=== PATIENT | female | born 1945 | race Caucasian/White ===

== ENCOUNTER 2022-06-21 14:30 | Outpatient (CLI) | payer MEDICARE, SELFPAY ==
--- NOTE | 2022-06-21 15:00 | CRLHL7_ITS ---
For Patients: As a result of the Century Cures Act, medical imaging exams and procedure reports are released immediately into your electronic medical record. You may view this report before your referring provider. If you have questions, please contact your health care provider. DXA BONE MINERAL DENSITY STUDY 06/21/2022 Current height (in): 65.5. Weight (lb): 112.0. Menopause age: 52. Ethnicity: White. 1. Have you had a previous hip or vertebral fracture? No. 2. Have you had any fractures during your adult life which did not result from significant trauma (e.g., auto accident)? No. 3. Did either of your parents have a hip fracture? No. 4. Do you smoke? No. 5. Have you ever taken Glucocorticoids? No. 6. Do you have rheumatoid arthritis? No. 7. Do you have secondary osteoporosis? No. 8. Do you drink 3 or more alcoholic drinks per day? No. 9. Are you being treated for osteoporosis? No. 10. Have you ever taken any of the following medications: Actonel, Evista, Fosamax, Miacalcin, Reclast, Boniva, Forteo, HRT (i.e. estrogen/hormone therapy), Protelos, Prolia, Vitamin D, Calcium, other ??? please specify. ANSWER: Yes, vitamin D, calcium. 11. Do you have any of the following medical conditions: Anorexia or bulimia, asthma or emphysema, end stage renal disease, hyperparathyroidism, any seizure disorders, cancer, inflammatory bowel diseases, hysterectomy, other ??? please specify. ANSWER: Yes, hysterectomy. 12. What was your maximum height (inches)? 65. 13. Do you perform weight bearing exercise regularly? Yes. 14. Do you regularly consume dairy products? No. 15. Do you drink caffeinated beverages? No. 16. At what age did your period start? 17. 17. Are you premenopausal? No. 18. How many full term pregnancies have you had? 0. 19. Have you ever missed your period for more than 6 months in a row (not including or menopause)? No. TECHNIQUE: Bone mineral density study was performed using the [employer]. FINDINGS: The results of the study expressed as bone mineral density (BMD) are as follows: Lumbar spine L1, L2, and L4: BMD: 0.944 g/cm2. T-score: -0.8. Z-score: 1.6. Neck Left: BMD: 0.606 g/cm2. T-score: -2.2. Z-score: -0.1. Right: BMD: 0.616 g/cm2. T-score: -2.1. Z-score: 0.0. Total Left: BMD: 0.820 g/cm2. T-score: -1.0. Z-score: 0.8. Right: BMD: 0.816 g/cm2. T-score: -1.0. Z-score: 0.8. IMPRESSION: Osteopenia. *Comparison exams done prior to 11/2019 were performed on different unit, [facility]. COMPARISON: Compared with scan of 01/13/2020, the bone mineral density has decreased by 1.3 percent at the spine and decreased by 3.1 percent at the hips. FRAX 10-year Fracture Risk Major Osteoporotic Fracture: 12 percent Hip Fracture: 3.4 percent Reported Risk Factors: [place] () Neck BMD=0.606, BMI=18.4 Juan A Escobedo M.D. Diagnostic Radiologist [email or web address] OSIEL/fadia / be/Dictated by: Juan A Escobedo MD @ 06/21/2022 3:31:00 PM (Electronically Signed)
== END 2022-06-21 14:31 | disposition home or self-care (01) ==
PROVIDERS: PCP Family Medicine; Visit Provider Family Medicine
DX: M85.80 Other specified disorders of bone density and structure, unspecified site (principal); M85.89 Other specified disorders of bone density and structure, multiple sites; M81.0 Age-related osteoporosis without current pathological fracture
CPT/HCPCS: 77080

== ENCOUNTER 2023-06-14 14:44 | Outpatient (CLI) | payer MEDICARE, SELFPAY | END 2023-06-14 14:45 | disposition home or self-care (01) | PROVIDERS: PCP Family Medicine; Visit Provider Family Medicine | DX: I10 Essential (primary) hypertension (principal); E03.9 Hypothyroidism, unspecified | CPT/HCPCS: 80048; 84443 ==

== ENCOUNTER 2024-01-01 11:21 | Outpatient (CLI) | payer MEDICARE, SELFPAY | END 2024-01-01 11:22 | disposition home or self-care (01) | PROVIDERS: PCP Family Medicine; Visit Provider Family Medicine | DX: I10 Essential (primary) hypertension (principal) | CPT/HCPCS: 80048; 80061 ==

== ENCOUNTER 2024-01-29 09:10 | Outpatient (CLI) | payer MEDICARE, SELFPAY ==
--- NOTE | 2024-01-29 09:45 | CRLHL7_ITS ---
For Patients: As a result of the Century Cures Act, medical imaging exams and procedure reports are released immediately into your electronic medical record. You may view this report before your referring provider. If you have questions, please contact your health care provider. BILATERAL SCREENING MAMMOGRAM WITH COMPUTER-AIDED DETECTION AND TOMOSYNTHESIS TECHNIQUE: CC and MLO views were obtained. These mammographic images have been obtained using full-field digital technique. These mammographic images were interpreted with the benefit of computer-aided detection. Breast Tomosynthesis was used in this interpretation. COMPARISON FILM: 08/24/21, 08/18/20, 08/10/19. FINDINGS: The breasts are heterogeneously dense, which may obscure small masses IMPRESSION: There is no radiographic evidence for malignancy. ASSESSMENT: BI-RADS Category 1: Negative RECOMMENDATION: Routine screening mammogram in 1 year. A lay language report of this examination will be provided to the patient. Juan A Escobedo M.D. Diagnostic Radiologist [email or web address] NURYS/Dictated by: Juan A Escobedo MD @ 01/30/2024 9:50:00 AM (Electronically Signed)
== END 2024-01-29 09:11 | disposition home or self-care (01) ==
LOC: MAMMO 09:12
PROVIDERS: PCP Family Medicine; Visit Provider Family Medicine
DX: Z12.31 Encounter for screening mammogram for malignant neoplasm of breast (principal); R92.2 Inconclusive mammogram
CPT/HCPCS: 77063; 77067

== ENCOUNTER 2024-11-24 17:10 | Emergency (ER) | payer MEDICARE, SELFPAY ==
--- OUTSIDE RECORDS SUMMARY | 2024-11-24 17:13 | XMS_ITS | Clinical Summary ---
Author Organization [facility] Address [address] [place] [id number] Care Team Providers Care Rand Maker Name Role Phone Juan A Gore MD Primary Care Provider + Allergies No known active allergies Medications No known medications Social History Tobacco Use Types Packs/Day Years Used Date Smoking Tobacco: Never Smokeless Tobacco: Never Alcohol Use Standard Drinks/Week Comments Not Asked 0 (1 standard drink = 0.6 oz pur e alcohol) Comments Unknown Sex and Gender Information Value Date Recorded Sex Assigned at Not on file Legal Sex Female 7:04 AM FINAL [employer] Gender Identity Not on file Sexual Orientation Not on file Obstetrics History Last Filed Vital Signs Vital Sign Reading Time Taken Comments Blood Pressure 137/74 03/09/2013 2:26 PM CDT Pulse 56 03/09/2013 2:26 PM CDT Temperature - - Respiratory Rate - - Oxygen Saturation 97% 03/09/2013 2:26 PM CDT Inhaled Oxygen Concentration - - Weight 54.5 kg (120 lb 4 oz) 03/09/2013 2:26 PM CDT Height - - Body Mass Index - - Plan of Treatment Health Maintenance Due Date Last Done Comments Tdap 1958 Depression screening for age 12+ 1959 BMI (ht and wt on same day) for age 18+ 1965 Hepatitis C screening for ag e 18-79 1965 Tetanus booster 1967 Pneumococcal series for age 50+ (1 of 1 - PCV) 1997 Zoster (shingles) series for age 50+ (1 of 2) 1997 DEXA/DXA scan for age 65+ 01/15/2012 RSV vaccine for adults or (1 - 1-dose 75+ series) 2022 COVID-19 vaccine series (2023- season) 2024 Influenza Vaccine (Season Ended) 2025 Hepatitis B series for 19+ Aged Out N o longer eligible based on patient's age to complete this topic Insurance BLUE CROSS MEDICARE ADVANTAGE MR Care Teams Rand Maker Relationship Specialty Start Date End Date Juan A Gore MD [address] [place] [address] PCP - General Family Practice 03/26/22
[2024-11-24 17:19] VITALS: BP 194/78; PULSE 66; RESP 18; TEMP 36.9; O2SAT 98; BMI 17.3
--- NOTE | 2024-11-24 17:22 | ED_ITS ---
HPI - Animal Bite General Time Seen by Provider: 17:22 Date Seen: 11/24/24 Chief Complaint: Animal Bite Stated Complaint: reffered here for possible rabies Time Seen by Provider: 11/24/24 17:12 Source: patient and RN notes reviewed Mode of arrival: ambulatory Limitations: no limitations History of Present Illness HPI narrative: This 79-year-old female is referred by Urgent Care for a feral cat bite. She was bit in the right palm area earlier. This is a feral cat that she has been feeding for about 5 years. The cat is friendly with her and does allow her to touch it. She was petting it, feels she had an area that the cat did not like in the cat reached around and bit her in the hand. She did clean the wound, put ointment on it and bandaged. She was instructed by urgent care to go to the ER for rabies immunoglobulin. This cat is not vaccinated. Patient is up-to-date on her tetanus, last 1 in June 2018. MD complaint: animal bite Related Data Home Medications ?Medication ?Instructions ?Recorded ?Confirmed calcium 333 mg-vit D3 200 1 tab PO QDAY 01/26/2211/24 unit-magnesium 133 mg-zinc 5 mg tablet lactobacillus combination no.9 4 4,000 mmu cells PO QD AY 01/26/22 11/24/24 billion cell capsule (Adult 50 Plus Probiotic) kkluuszb-ydv-dupad ac 400 1 tab PO QDAY 01/26/2211/24 mcg-calcium carb 500 mg-vit K1 20 mcg tablet (Women's 50 Plus Multivitamin) Previous Rx's ?Medication ?Instructions ?Recorded lisinopril 20 mg tablet 20 mg PO DAILY #90 tabs 12/22 024 amoxicillin 500 mg-potassium 1 tab PO BID #10 tabs 09/15 clavulanate 125 mg tablet (Augmentin) Allergies Allergy/AdvReac Type Severity Reaction Status Date / Time aspirin Allergy Severe Verified 11/24/24 16:29 gluten Allergy Severe Gastrointestinal Verified 11/24/24 16:29 Upset lactose Allergy Severe Gastrointestinal Verified 11/24/24 16:29 Upset thimerosal Allergy Unknown Unknown Verified 11/24/24 16:29 chocolate AdvReac Severe Headache Verified 11/24/24 16:29 Review of Systems Narrative: As per HPI. PFSH PFSH Medical History Primary hypertension ?I10 - Essential (primary) hypertension (ICD-10) History of pericarditis ?Z86.79 - Personal history of other diseases of the circulatory system (ICD- 10) Campylobacter enteritis ?A04.5 - Campylobacter enteritis (ICD-10) Irritable bowel syndrome ?K58.9 - Irritable bowel syndrome without diarrhea (ICD-10) Symptomatic premature ventricular contractions ?I49.3 - Ventricular premature depolarization (ICD-10) Osteopenia ?M85.80 - Other specified disorders of bone density and structure, unspecified site (ICD-10) History of diverticulitis ?Z87.19 - Personal history of other diseases of the digestive system (ICD-10) Depression (01/08/13) ?F32.A - Depression, unspecified (ICD-10) Surgical History History of left breast biopsy ?Z98.890 - Other specified postprocedural states (ICD-10) Hx of blepharoplasty ?Z98.890 - Other specified postprocedural states (ICD-10) S/P CHANDLER-BSO ?Z90.710 - Acquired absence of both cervix and uterus (ICD-10) ?Z90.722 - Acquired absence of ovaries, bilateral (ICD-10) ?Z90.79 - Acquired absence of other genital organ(s) (ICD-10) History of tonsillectomy ?Z90.89 - Acquired absence of other organs (ICD-10) Family History Father High blood pressure Social History Narrative: , retired, nonsmoker What is your current living situation?: I presently have a place to live Problems where you live: no known problems In the past 12 months, utilities in danger of being shut off: no In past 12 months, lack of transportation kept you from medical appts, meetings, work, or getting things needed for daily living: no In the past 12 mos, have been you worried that your food would run out before you had money to buy more?: never true In the past 12 mos, the food you bought just didn't last and you didn't have money to buy more?: never true Smoking Status: Never smoker How often does anyone, including family, friends and others, physically hurt you : never How often does anyone, including family, friends and others, insult or talk down to you: never How often does anyone, including family, friends and others, threaten you with harm: never How often does anyone, including family, friends and others, scream or curse at you: never Exam Const: Vital Signs, click to edit/add: Vital Signs - 24 hr 11/24/24 17:19 Temperature 98.4 F Pulse Rate [Pulse Oximeter] 66 Respiratory Rate 18 Blood Pressure [Ri ght Upper Arm] 194/78 H Pulse Oximetry 98 Oxygen Delivery Me thod Room Air This very pleasant 79-year-old female is ambulatory in the ED of her own accord. She is alert, interactive, no apparent distress. On her right thenar eminence she has bandage over it, this is opened up, she has some punctate lesions with a little bit of bleeding, no erythema, no swelling. These lesions just had a l ittle oozing, there is a little drainage of blood on the bandage. Obviously no acute infection at this time, wound just happened within the last couple hours. Documenting provider has reviewed patient's vital signs: yes Course Course ED Course: Discussed with her ongoing watching of this animal. If the animal is appearing ill or becoming sick, should be live trapped, you thin eyes and tested. She can always contact [facility] or local resources for further direction on this. We discussed wound prophylaxis for infection. We also reviewed rabies immunoglobulin and rabies vaccine. She has opted to treat with rabies immunoglobulin and rabies vaccine. I will have nursing staff give me about 2 mL of the rabies immune globulin to inject around the thenar eminence. Reevaluation(s) Time of Reevaluation #1: 17:55 Reevaluation #1: Injected 2 mL of rabies immune globulin around the wound in the thenar eminence area. She tolerated this well. Nursing staff will give the rest of the immunoglobulin and the rabies vaccine. Vital Signs Vital signs: Initial Vital Signs Temperature 98.4 F 11/24/24 17:19 Temperature Source Temporal Artery Scan 11/24/24 17:19 Pulse Rate 66 11/24/24 17:19 Respiratory Rate 18 11/24/24 17:19 Blood Pressure 194/78 H 11/24/24 17:19 Blood Pressure Mean 116 H 11/24/24 17:19 Blood Pressure Position Sitting 11/24/24 17:19 Pulse Oximetry 98 11/24/24 17:19 Oxygen Delivery Method Room Air 11/24/24 17:19 Vital Signs Temperature 98.4 F 11/24/24 17:19 Pulse Rate 66 11/24/24 17:19 Respiratory Rate 18 11/24/24 17:19 Blood Pressure 194/78 H 11/24/24 17:19 Pulse Oximetry 98 11/24/24 17:19 Oxygen Delivery Method Room Air 11/24/24 17:19 Temperature 98.4 F 11/24/24 17:19 Pulse Rate 66 11/24/24 17:19 Respiratory Rate 18 11/24/24 17:19 Blood Pressure 194/78 H 11/24/24 17:19 Pulse Oximetry 98 11/24/24 17:19 Oxygen Delivery Method Room Air 11/24/24 17:19 Discharge Plan Discharge Clinical Impression: Cat bite Qualifiers: Encounter type: initial encounter Qualified Code(s): W55.01XA - Bitten by cat, initial encounter Patient Disposition: Home, Self-Care Condition: Stable Instructions: Animal Bite (ED) Additional Instructions: Can use Tylenol if you have any low-grade fever or body aches from the immunizations or immunoglobulin. Follow bottle dosing for instructions of Tylenol. You will need to return on day 3, 7 and 14 for repeat vaccination for rabies. This is a multiple dose series to become immunized against rabies. I have also provided a prescription for Augmentin to take for wound prophylaxis to prevent infection. Try to start this tonight but certainly need to start it tomorrow morning at the latest. If you do see increased redness swelling, purulent discharge, develops fever with these symptoms, need to be re-evaluated for possible wound infection not responding to the Augmentin. Activity Level: Activity as Tolerated Prescriptions: New amoxicillin-pot clavulanate [Augmentin] 500-125 mg tablet 1 tab PO BID Qty: 10 0RF No Action lisinopril 20 mg tablet 20 mg PO DAILY Qty: 90 3RF calcium carb-D3-mag kil97-lgoi [phone] nw-pnul-iq-mg tablet 1 tab PO QDAY Rx Instructions: administer with a meal Adult 50 Plus Probiotic 4 billion cell capsule 4,000 mmu cells PO QDAY Rx Instructions: administer with a meal Women's 50 Plus Multivitamin 400 mcg-500 mg calcium-20 mcg tablet 1 tab PO QDAY Follow Up/Referrals: Juan A Gore MD [Primary Care Provider, Family Practice] Stand Alone Forms: RegisterPatientth Info Instructions
[2024-11-24] MEDS: RABIES VACCINE (RABAVERT) 2.5 UNIT IM (18:03)
[2024-11-24] MEDS: RABIES IMMUNE GLOBULIN 150 UNIT/ML INJ 900 UNIT INFILTRATI (18:05)
--- NOTE | 2024-11-25 09:53 | ED.NURSE ---
Spoke to patient's . Prescription was inadvertly sent to wrong pharmacy. I then called this prescription to jose en[facility] in [place] pharmacy.
== END 2024-11-24 18:42 | disposition home or self-care (01) ==
LOC: ED 17:34
PROVIDERS: Emergency Provider Family Medicine; PCP Family Medicine
DX: S61.451A Open bite of right hand, initial encounter (principal); W55.01XA Bitten by cat, initial encounter; Z23 Encounter for immunization
CPT/HCPCS: 90377; 90471; 96372; 99282; 99283; 90675

== ENCOUNTER 2025-02-23 13:33 | Outpatient (CLI) | payer MEDICARE, SELFPAY | END 2025-02-23 13:34 | disposition home or self-care (01) | PROVIDERS: PCP Family Medicine; Visit Provider Family Medicine | DX: I10 Essential (primary) hypertension (principal); M85.80 Other specified disorders of bone density and structure, unspecified site | CPT/HCPCS: 80048; 80061; 85025 ==

== ENCOUNTER 2025-02-25 12:54 | Outpatient (CLI) | payer MEDICARE, SELFPAY ==
--- NOTE | 2025-02-25 13:00 | CRLHL7_ITS ---
For Patients: As a result of the Century Cures Act, medical imaging exams and procedure reports are released immediately into your electronic medical record. You may view this report before your referring provider. If you have questions, please contact your health care provider. INDICATION: BILATERAL SCREENING MAMMOGRAM, ASYMPTOMATIC 80 Y/O FEMALE COMPARISON: 01/29/2024, 08/24/2021, 08/18/2020 TECHNIQUE: Digital mammogram in CC and MLO projections including computer-aided detection (CAD) and tomosynthesis. BREAST COMPOSITION: The breasts are heterogeneously dense, which may obscure small masses. FINDINGS: No suspicious findings. ASSESSMENT: BI-RADS 1 Negative RECOMMENDATION: Annual screening mammogram. A lay language report of this examination will be provided to the patient. Dictated by: Juan A Escobedo MD @ 02/26/2025 08:37:48 (Electronically Signed)
== END 2025-02-25 12:55 | disposition home or self-care (01) ==
LOC: MAMMO 12:54
PROVIDERS: PCP Family Medicine; Visit Provider Family Medicine
DX: Z12.31 Encounter for screening mammogram for malignant neoplasm of breast (principal); R92.333 Mammographic heterogeneous density, bilateral breasts
CPT/HCPCS: 77063; 77067

== ENCOUNTER 2025-03-10 13:57 | Outpatient (CLI) | payer MEDICARE, SELFPAY ==
--- NOTE | 2025-03-10 14:30 | CRLHL7_ITS ---
For Patients: As a result of the Century Cures Act, medical imaging exams and procedure reports are released immediately into your electronic medical record. You may view this report before your referring provider. If you have questions, please contact your health care provider. XR DXA BONE MINERAL DENSITY (BMD) Current height (in): 65.5. Weight (lb): 112.0 Menopause age: 52. Ethnicity: White. Reason for exam: Other specified disorders of bone density. 1. Have you had a previous hip or vertebral fracture? No. 2. Have you had any fractures during your adult life which did not result from significant trauma (e.g., auto accident)? No. 3. Did either of your parents have a hip fracture? No. 4. Do you smoke? No. 5. Have you ever taken Glucocorticoids? No. 6. Do you have rheumatoid arthritis? No. 7. Do you have secondary osteoporosis? No. 8. Do you drink 3 or more alcoholic drinks per day? No. 9. Are you being treated for osteoporosis? No. 10. Have you ever taken any of the following medications: Actonel, Evista, Fosamax, Miacalcin, Reclast, Boniva, Forteo, HRT (i.e. estrogen/hormone therapy), Protelos, Prolia, Vitamin D, Calcium, other ??? please specify. ANSWER: Yes, vitamin D, calcium. 11. Do you have any of the following medical conditions: Anorexia or bulimia, asthma or emphysema, end stage renal disease, hyperparathyroidism, any seizure disorders, cancer, inflammatory bowel diseases, hysterectomy, other ??? please specify. ANSWER: Yes, hysterectomy. 12. What was your maximum height (inches)? 65. 13. Do you perform weight bearing exercise regularly? Yes. 14. Do you regularly consume dairy products? Yes. 15. Do you drink caffeinated beverages? No. 16. At what age did your period start? 17. 17. Are you premenopausal? No. 18. How many full-term pregnancies have you had? 0. 19. Have you ever missed your period for more than 6 months in a row (not including or menopause)? No. TECHNIQUE: Bone mineral density study was performed using the [employer]. FINDINGS: The results of the study expressed as bone mineral density (BMD) are as follows: Lumbar spine L1, L2, L4: BMD: 0.973 g/cm2. T-score: -0.6. Z-score: 2.0 Neck Left: BMD: 0.614 g/cm2. T-score: -2.1. Z-score: 0.1 Right: BMD: 0.640 g/cm2. T-score: -1.9. Z-score: 0.3 Total Left: BMD: 0.909 g/cm2. T-score: -0.3. Z-score: 1.7 Right: BMD: 0.863 g/cm2. T-score: -0.6. Z-score: 1.3 IMPRESSION: Osteopenia. *Comparison exams done prior to 11/2019 were performed on different unit, [employer]. COMPARISON: Compared with scan of 06/21/2022, the bone mineral density has increased by 3.0 percent at the spine and increased by 8.3 percent at the hip. FRAX 10-year Fracture Risk Major Osteoporotic Fracture: 12 percent Hip Fracture: 3.7 percent Reported Risk Factors: US () Neck BMD = 0.614, BMI = 18.4 Juan A Escobedo M.D. Diagnostic Radiologist [email or web address] Transcribed: 3:49 pm DW/Dictated by: Juan A Escobedo MD @ 03/10/2025 3:21:00 PM (Electronically Signed)
== END 2025-03-10 13:58 | disposition home or self-care (01) ==
LOC: RAD 13:58
PROVIDERS: PCP Family Medicine; Visit Provider Family Medicine
DX: M85.80 Other specified disorders of bone density and structure, unspecified site (principal); M85.89 Other specified disorders of bone density and structure, multiple sites
CPT/HCPCS: 77080